=== PATIENT | female | born 2000 | race Caucasian/White ===

== ENCOUNTER 2018-02-14 15:47 | Emergency (ER) | payer BC ==
[2018-02-14] MEDS ORDERED: diphenhydrAMINE 50 MG/ML VIAL ONE (17:02)
[2018-02-14] MEDS ORDERED: Acetaminophen 500 MG TAB ONE (17:02)
[2018-02-14] MEDS ORDERED: Metoclopramide HCl 10 MG/2 ML VIAL ONE (17:02)
[2018-02-14 17:06] LABS: Anion Gap 14 mmol/L (10-20); BUN (Urea Nitrogen) 9 mg/dL (8.4-21.0); Calc. Creatinine Clearance 0 mL/min (70-130); Calcium 9.4 mg/dL (7.8-10.44); Carbon Dioxide 23 mmol/L (22-29); Chloride 109 mmol/L (98-107); Estimated GFR-MDRD Greater than 90; Glucose 94 mg/dL (70-105); Sodium 142 mmol/L (136-145)
[2018-02-14 17:20] LABS: Hemoglobin 11.9 g/dL (12.0-16.0); Mean Corpuscular HGB CONC 30.9 g/dL (32.0-36.0); Mean Corpuscular Hemoglobin 22.3 pg (25.0-35.0); Mean Corpuscular Volume 72.1 fL (78.0-98.0); Mean Platelet Volume 6.9 fL (7.4-10.4); Platelet Count 268 thou/uL (130-400); RBC Distribution Width 14.6 % (11.5-14.5); Red Blood Cell (RBC) Count 5.34 mill/uL (4.00-5.20); White Blood Cell (WBC) Count 3.1 thou/uL (4.8-10.8)
[2018-02-14 17:45] LABS: #Lymphocytes 1.1 thou/uL (1.20-3.40); #Monocytes 0.4 thou/uL (0.11-0.59); #Neutrophils 1.6 thou/uL (1.40-6.50); %Basophils 0.8 % (0.0-1.0); %Eosinophils 0.2 % (0.0-10.0); %Lymphocytes 34.2 % (28.0-48.0); %Monocytes 11.3 % (0.0-4.0); %Neutrophils 53.5 % (31.0-61.0)
[2018-02-14 17:46] LABS: Hypochromia SLIGHT = 6-15 cells (100X) (0-5/hpf); MDiff Complete? YES; Microcytosis SLIGHT = 6-15 cells (100X) (0-5/hpf); PLT Morphology Comment Appears Adequate
[2018-02-14] MEDS ORDERED: Magnesium Sulfate 2 GM/NS 0.9% 50 ML BAG ONE (17:57)
[2018-02-14] MEDS ORDERED: Dexamethasone 10 MG/ML VIAL ONE (17:57)
--- NOTE | 2018-02-14 18:14 | CT ---
CT HEAD NONCONTRAST: HISTORY: Headache. COMPARISON: None. FINDINGS: A subtle area of decreased density at the periphery of the posterior apex, left occipital lobe, shows decreased density through the christianson matter. No appreciable mass effect. The ventricles are unremark able. No acute intracranial hemorrhage. IMPRESSION: Low density area at the left occipital lobe could be artifactual but warrants further evaluation in t he setting of acute symptoms. Clinical correlation regarding visual symptoms is required. Please consider nonemergent MRI brain, with and without Gadolinium contrast, for better characterizat ion. POS: IAN
== END 2018-02-14 19:04 | disposition home or self-care (01) ==
LOC: SCSER 15:47
DX: R51 Headache (principal); R90.0 Intracranial space-occupying lesion found on diagnostic imaging of central nervous system; D64.9 Anemia, unspecified
CPT/HCPCS: 70450; 80048; 85025; 96365; 96375; J1100; J1200; J2765; J3475